=== PATIENT | male | born 1945 | race Caucasian/White ===

== ENCOUNTER → 2017-06-19 | Outpatient (CLI) | payer MEDICARE ==
[2017-06-19 13:21] LABS: Blood Urea Nitrogen 26 mg/dL (9-20); Non-African American GFR(MDRD) >60 (>60 ml/min/1.73 sqM)
--- NOTE | 2017-06-19 15:20 | MR ---
EXAMINATION TYPE: MR brain wo/w con DATE OF EXAM: 06/19/2017 2:39 PM COMPARISON: NONE HISTORY: Syncope CONTRAST: Patient received 17 mL intravenous MultiHance gadolinium contrast. Multiplanar and multispin-echo imaging of the brain was performed . Pre and post contrast enhanced i mages are obtained. The ventricles, basal cisterns and sulci overlying the cerebral convexities are mildly enlarged. There is evidence of mild periventricular white matter ischemic demyelination. Remote deep white matter insults are also noted. No acute edema is seen on diffusion weighted imaging. There is no evidence for midline shift or mass effect. Acute intracranial hemorrhage or extra-axial collection is not evident. No enhancing lesions are seen. The mastoid air cells are well-aerated. Mild mucosal thickening of the frontal sinuses. IMPRESSION: Age-related atrophic and chronic small vessel ischemic change. No acute intracranial process at this time. No enhancing lesions are seen.
== END ==
LOC: RADMRIMAIN 12:45
PROVIDERS: ATTEND Internal Medicine
DX: G31.1 Senile degeneration of brain, not elsewhere classified (principal); I67.82 Cerebral ischemia
CPT/HCPCS: 82565; 84520; 70553; A9577

== ENCOUNTER → 2018-07-25 | Outpatient (CLI) | payer MEDICARE ==
--- NOTE | 2018-07-25 12:59 | US ---
EXAMINATION TYPE: US kidneys/renal and bladder DATE OF EXAM: 07/25/2018 COMPARISON: NONE CLINICAL HISTORY: R31.9 HEMATURIA. Microscopic hematuria EXAM MEASUREMENTS: Right Kidney: 10.4 x 4.9 x 5.2 cm Left Kidney: 11.0 x 5.7 x 4.9 cm Right Kidney: no evidence of hydronephrosis Left Kidney: no evidence of hydronephrosis Bladder: appears wnl Bilateral Jets seen: yes There is no evidence for hydronephrosis at this point in time. Small areas of increased echogenicity may reflect nonobstructing nephrolithiasis. No masses are identified. The urinary bladder is anechoi c. Bilateral ureteral jets are seen. IMPRESSION: Nonobstructing nephrolithiasis difficult to exclude.
== END | disposition home or self-care (01) ==
LOC: RADUSWWP 12:06
PROVIDERS: ATTEND Internal Medicine
DX: R31.9 Hematuria, unspecified (principal)
CPT/HCPCS: 76770

== ENCOUNTER → 2019-08-11 | Outpatient (CLI) | payer MEDICARE ==
--- NOTE | 2019-08-11 14:11 | XR ---
EXAMINATION TYPE: XR knee complete LT DATE OF EXAM: 08/11/2019 COMPARISON: NONE HISTORY: 74-year-old male M25.562, left knee pain TECHNIQUE: 3 views FINDINGS: Medial and lateral meniscal chondrocalcinosis. Tricompartmental degenerative spurring. Underlying kne e joint effusion. Thickening of the patellar tendon insertion. No acute fracture, subluxation, or dis location. IMPRESSION: 1. Underlying joint effusion and meniscal chondrocalcinosis with mild tricompartmental OA. Findings m ay reflect underlying CPPD. 2. Given the joint effusion, if concern for internal derangement, MRI can be performed. 3. Thickening of the distal patellar tendon suggests at least moderate insertional tendinopathy. If i ndicated, this can also be evaluated by MRI.
== END | disposition home or self-care (01) ==
LOC: RADXRMAIN 09:42
PROVIDERS: ATTEND Internal Medicine
DX: M17.12 Unilateral primary osteoarthritis, left knee (principal); M11.262 Other chondrocalcinosis, left knee